=== PATIENT | female | born 1945 | race African-American/Black ===

== ENCOUNTER 2017-02-12 16:16 | Inpatient (IN) | payer MEDICARE, BC ==
--- NOTE | ~2017-02-12 | EGD ---
EGD REPORT [facility] [address] [address] NAME: CRISTINA STAPLETON : 41 STATUS : ADM IN PAT#: [id number] AGE: 71 ADM/REG DATE : 02/12/17 MR#: [id number] REPORT SERV DATE: 02/16/17 DICTATED BY: MAX FRENCH DATE: 02/16/17 REPORT STATUS : Draft [facility]ANSCRIBED BY: [facility] DATE: 02/16/17 Pulmonology Patient Name: Cristina Stapleton Procedure Date: 02/16/2017 12:16 PM Date of : 1945 Attending MD: ALXE FRENCH MD Procedure Date No Time: 02/16/2017 Procedure: EBUS Indications: Bilateral lung masses and left pleural effusion. Non-diagnostic thoracentesis Providers: ALEX FRENCH MD Referring MD: MEIR GASPAR Medicines: Lidocaine 2% 20 mL Complications: No immediate complications Procedure: Pre-Anesthesia Assessment: - ASA Grade Assessment: IV - A patient with severe systemic disease that is a constant threat to life. - After reviewing the risks and benefits, the patient was deemed in satisfactory condition to undergo the procedure. - A History and Physical has been performed. Patient meds and allergies have been reviewed. The risks and benefits of the procedure and the sedation options and risks were discussed with the patient. All questions were answered and informed consent was obtained. Patient identification and proposed procedure were verified prior to the procedure by the physician and the nurse in the pre-procedure area in the procedure room. Mental Status Examination: alert and oriented. Respiratory Examination: poor air movement. CV Examination: normal and RRR, no murmurs, no S3 or S4. ASA Grade Assessment: IV - A patient with severe systemic disease that is a constant threat to life. After reviewing the risks and benefits, the patient was deemed in satisfactory condition to undergo the procedure. The anesthesia plan was to use general anesthesia. Immediately prior to administration of medications, the patient was re-assessed for adequacy to receive sedatives. The heart rate, respiratory rate, oxygen saturations, blood pressure, adequacy of pulmonary ventilation, and response to care were monitored throughout the procedure. The physical status of the patient was re-assessed after the procedure. After obtaining informed consent, the Bronchoscope was introduced through the mouth, via laryngeal mask airway and advanced to the tracheobronchial tree. the BF EGD REPORT [address] [address] NAME: CRISTINA STAPLETON : 41 STATUS : ADM IN PAT#: [id number] AGE: 71 ADM/REG DATE : 02/12/17 MR#: [id number] REPORT SERV DATE: 02/16/17 DICTATED BY: MAX FRENCH DATE: 02/16/17 REPORT STATUS : Draft TRANSCRIBED BY: [employer] DATE: 02/16/17 [id number] was introduced through the and advanced to the. The procedure was accomplished without difficulty. The patient tolerated the procedure well. Findings: The laryngeal mask airway is in normal position. The vocal cords move normally with breathing. The subglottic space is normal. The trachea is of normal caliber. The luna is sharp. The tracheobronchial tree was examined to at least the first subsegmental level. Bronchial mucosa and anatomy are normal; there are no endobronchial lesions, and no secretions. EBUS TBNA of lymph node level 7 x 4 passes for cytology EBUS TBNA of lymph node level 4R x 8 passes for cytology EBUS TBNA of lymph node level 11R x 6 passes for cytology Bronchoalveolar lavage was performed in the right lower lobe of the lung and sent for routine cytology. 60 mL of fluid were instilled. 10 mL were returned. The return was blood-tinged. Impression: Rapid On-Site Evaluation (ZEN): Preliminary cytology is POSITIVE for malignancy (final results are pending). Recommendation: - Await test results. - Chest X-ray post-procedure. - Follow up with bronchoscopist tomorrow. Attending Participation: I personally performed the entire procedure. ALEX FRENCH MD 02/16/2017 12:47 PM This report has been signed electronically. Number of Addenda: 0 Note Initiated On: 02/16/2017 12:16 PM [address] [address]
--- NOTE | ~2017-02-12 | HP ---
History And Physical [address] [place]. [address] NAME: CRISTINA STAPLETON : 41 STATUS : ADM IN [facility]#: [id number] AGE: 71 ADM/REG DATE : 02/12/17 MR#: [id number] REPORT SERV DATE: 02/12/17 DICTATED BY: ATTILA PELAEZ DATE: 02/12/17 REPORT STATUS : Draft TRANSCRIBED BY: MODLester DATE: 02/12/17 DATE OF ADMISSION: 02/12/2017 CHIEF COMPLAINT: Worsening shortness of breath. HISTORY OF PRESENT ILLNESS: Ms. Stapleton is a 71-year-old female with history of hypertension and breast cancer, status post lumpectomy and chemotherapy who presents to the hospital with a complaint of shortness of breath. The patient states that she was well until about two or three days ago when she noticed that she started developing shortness of breath while exerting herself. She states that prior to her symptoms she was able to climb the stairs in her house without any difficulty. However, two days ago, she noticed that she was requiring more effort to exert herself. She said her symptoms progressively worsened over the next couple of days prompting her to present to the emergency room today. Upon presentation to the emergency room, preliminary workup included labs which were relatively normal, except sodium of 132 and a potassium of 3.0. A chest x-ray was also obtained which noted left pleural effusion involving the middle and lower lung lobes. The patient was subsequently admitted on the hospitalist service for further management. At the time of my evaluation, the patient was hemodynamically stable. She was not on any nasal cannula supplemental oxygen. She corroborated the above story; however, denied any fevers, any chills, any recent sick contacts. No chest pain or palpitations. No nausea or vomiting. No constipation. She has made report of worse significant shortness of breath with minimal exertion. She says other than that, she feels well and has no other complaints at this time. REVIEW OF SYSTEMS: A 12-point review of system was performed. All systems were negative except as noted in the HPI. PAST MEDICAL HISTORY: 1. Hypertension. 2. Breast cancer. PAST SURGICAL HISTORY: Hysterectomy. FAMILY HISTORY: Significant for: 1. Hypertension. 2. Coronary artery disease. 3. Renal disease. SOCIAL HISTORY: The patient reports smoking for over 20 years. States that a pack of cigarettes would last about three to four days. She states that she quit smoking 12 years ago at the time of her breast cancer diagnosis. Alcohol use, she reports using alcohol socially. She denies any illicit drug use. HOME MEDICATIONS: 1. Aspirin 81 mg p.o. daily. History And Physical [address] [place]. [address] NAME: CRISTINA STAPLETON : 41 STATUS : ADM IN PAT#: [id number] AGE: 71 ADM/REG DATE : 02/12/17 MR#: [id number] REPORT SERV DATE: 02/12/17 DICTATED BY: ATTILA PELAEZ DATE: 02/12/17 REPORT STATUS : Draft TRANSCRIBED BY: JOAN DATE: 02/12/17 2. Atorvastatin 10 mg p.o. at bedtime. 3. Chlorthalidone 25 mg p.o. daily. 4. Vitamin D 2000 units p.o. daily. 5. Synthroid 50 mcg p.o. daily. 6. Potassium chloride 20 mEq p.o. daily. ALLERGIES: THE PATIENT HAS NO KNOWN DRUG ALLERGIES. PHYSICAL EXAMINATION: VITAL SIGNS: On presentation, blood pressure 162/84 with a pulse of 90, respiration 19, O2 saturation 96% on room air. GENERAL: The patient is lying in bed, appears younger than stated age, in no acute distress, speaking in full sentences. HEENT: Normocephalic and atraumatic. Extraocular motors intact. Pupils round and reactive to light and accommodation. Anicteric sclerae. No conjunctival pallor. NECK: Trachea midline and symmetric. No JVD noted. No thyromegaly present. No lymphadenopathy palpated. CHEST: Nontender to palpation. No scars noted. CARDIOVASCULAR: Regular rate and rhythm. S1, S2. No murmurs, rubs, or gallops. LUNGS: Decreased breath sounds noted on the left middle and lower lung dasilva; however, the patient has normal respiratory effort. ABDOMEN: Positive bowel sounds. Nontender. Nondistended. No masses palpated. EXTREMITIES: No cyanosis, no clubbing, no edema. NEUROLOGIC: Alert and oriented x3. No focal deficits appreciated. LABORATORY DATA: WBC 5.3, hemoglobin 13.4, hematocrit 38.5 with an MCV of 88.3, platelets of 456. Sodium 132, potassium 3.0, chloride 97, bicarb 25, BUN 8, creatinine 0.88 with a GFR of 76, glucose 100. IMAGING: Portable chest x-ray, my interpretation, some dense opacities noted on the right lung bases. Pleural effusion noted on the entire left lung field, sparing only the lung apices. ASSESSMENT AND PLAN: 1. Left pleural effusion. Etiology unclear at this time. However, given the patient's history of breast cancer, recent weight loss, and labs noting hyponatremia, concerning for malignancy as etiology. Plan: We will obtain CT scan of the chest with contrast. We will consult IR for both a diagnostic and a therapeutic thoracentesis. 2. Hypertension, uncontrolled, currently only on chlorthalidone. We will start the patient on lisinopril 10 mg p.o. daily. 3. Hypokalemia. We will replete. 4. Hyponatremia, asymptomatic; however, concerning in the setting of pleural effusion. We will monitor for now. 5. Hypothyroidism. Currently on Synthroid. We will continue current management. 6. Code status. The patient will remain full code. 7. DVT prophylaxis with Lovenox. History And Physical [address] [address] NAME: CRISTINA STAPLETON : 41 STATUS : ADM IN [facility]#: [id number] AGE: 71 ADM/REG DATE : 02/12/17 MR#: [id number] REPORT SERV DATE: 02/12/17 DICTATED BY: ATTILA PELAEZ DATE: 02/12/17 REPORT STATUS : Draft TRANSCRIBED BY: JOAN DATE: 02/12/17 CONCHITA/JOAN Attila Pelaez MD / [id number] CC: Nehemias Perdomo M.D. Tricia Pratt M.D.
--- NOTE | ~2017-02-12 | DS ---
Discharge Summary [facility] [address] [place]. [address] NAME: CRISTINA SARAVIA : 41 STATUS : DIS IN PAT#: [id number] AGE: 71 ADM/REG DATE : 02/12/17 MR#: [id number] REPORT SERV DATE: 02/18/17 DICTATED BY: LORI PATEL DATE: 02/17/17 REPORT STATUS : Draft TRANSCRIBED BY: MODL DATE: 02/17/17 ADMISSION DATE: 02/12/2017 DISCHARGE DATE: 02/17/2017 HOSPITAL COURSE: This is a very pleasant 71-year-old female. She has a known history of endometrial cancer status post radiation, right breast cancer status post lumpectomy, chemotherapy, radiation therapy, hypertension, hyperlipidemia, hypothyroidism, known surgical history of total abdominal hysterectomy, right breast lumpectomy. She quit smoking in 2004 by half pack for 30 years prior to that, came in with large left pleural effusion and shortness of breath. 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 She was noted to have had a hormone agent for breast cancer with chemoradiation. She had a CT of the chest that showed large left pleural effusion, bilateral hilar masses, left thoracentesis 2 L of dark serosanguineous exudative effusion. The patient had cytology that was indeterminate as a result, needs a bronchoscopy EBUS during this hospital stay which Dr. James did on 02/16/2017 for which had EBUS lymph node level 7 x 4, 4R x 8, 11R x 6. ZEN was unfortunately positive for malignancy, final results pending. The patient is on 2 L of oxygen. We will do empiric Spiriva and PFT as an outpatient. Guaiac of the stool is negative. She also has CT of abdomen and pelvis. She had focal retroperitoneal adenopathy, suspected mesenteric adenopathy, destructive lesion suspect to left body L4 with adjacent sclerosis. Will follow with Dr. Marija Sutherland in less than one week. Oncology was okay with discharge after bronchoscopy yesterday. We will do walking oxygen challenge test, empiric Spiriva, PFT in four weeks. She had some mild SVT, I reduced her lisinopril and added metoprolol tartrate 12.5 mg p.o. b.i.d. DISCHARGE MEDICATIONS: 1. Aspirin 81 mg p.o. daily. 2. Lipitor 10 mg p.o. daily. 3. Chlorthalidone 25 mg p.o. daily. 4. Synthroid 50 mcg p.o. q.a.m. 5. Lisinopril 5 mg p.o. daily. 6. Metoprolol tartrate 12.5 mg p.o. b.i.d. 7. Prilosec p.r.n. 8. Spiriva 18 mcg capsule one inhale daily. 9. I gave her a ProAir HFA two puffs inhaled q.4 hours p.r.n. dyspnea. 10.The patient does not want any pain medications, I recommended Tylenol. CONSULT: Pulmonary as well as Oncology. Suspected possible endometrial cancer. DISCHARGE DIAGNOSES: Left thoracic masses, L2 lesion as well, hypertension, hypothyroidism, exudative effusion. All questions were answered. It took well over 30 minutes to do. DICTATED BY: Lori Patel DO Discharge Summary [address] [address] NAME: CRISTINA SARAVIA : 41 STATUS : DIS IN PAT#: [id number] AGE: 71 ADM/REG DATE : 02/12/17 MR#: [id number] REPORT SERV DATE: 02/18/17 DICTATED BY: LORI PATEL DATE: 02/17/17 REPORT STATUS : Draft TRANSCRIBED BY: JOAN DATE: 02/17/17 NADER/JOAN Lori Patel DO / [id number] CC: DO Tricia Gonzalez M.D.
--- NOTE | ~2017-02-12 | CN ---
Consultation Report [facility] [address] [place]. [address] NAME: CRISITNA STAPLETON : 41 STATUS : ADM IN PAT#: [id number] AGE: 71 ADM/REG DATE : 02/12/17 MR#: [id number] REPORT SERV DATE: 02/15/17 DICTATED BY: FOREIGN LE DATE: 02/15/17 REPORT STATUS : Draft TRANSCRIBED BY: MODLester DATE: 02/15/17 CONSULT NOTE DATE OF CONSULTATION: 02/15/2017 CHIEF COMPLAINT: Mild shortness of breath in a patient who presented with a large left pleural effusion. HISTORY OF PRESENT ILLNESS: Ms. Cristina Stapleton is a very pleasant 71-year-old female with a past medical history significant for breast cancer status post lumpectomy/chemotherapy, and radiation, endometrial cancer, and hypertension, who presents to [facility] Emergency Room with complaints of shortness of breath. It should be noted that Ms. Stapleton has not been hospitalized recently and she is usually in fairly good health given her significant comorbidities. 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 She does not usually require supplemental oxygen. She is on no nebulized medications. The patient quit smoking in 2004, prior to this time, she smoked approximately half a pack a day for 30 years. She denies symptomatology related to obstructive sleep apnea. She describes her exercise tolerance as being fairly poor of late. Ms. Stapleton was diagnosed with breast cancer in 2004. She underwent lobectomy and received chemo and radiation. She was likely on a hormonal agent as well. She did have a more recent diagnosis of endometrial cancer approximately two years ago, which was treated with radiation therapy. More recently, she has had some weight loss as well as worsening shortness of breath, which prompted her presentation to [facility] Emergency Room. Upon arrival, the patient was found to be hypertensive and afebrile. She had good oxygenation on room air. Initial white blood cell count was 5300. She did undergo a chest x-ray, which revealed a large left pleural effusion. She did undergo a CT of the chest, which demonstrated a large left-sided effusion as well as bilateral hilar masses. She underwent a left-sided thoracentesis, which produced 2 L of dark serosanguineous fluid. This was exudative in nature by both protein and LDH. Cultures have been sent with path pending, as the diagnostic yield on pleural fluid is sometimes suboptimal. Pulmonary has been consulted for consideration of possible further tissue biopsy. Currently, Ms. Stapleton states that her breathing has improved significantly after the thoracentesis. She is not requiring any supplemental oxygen. She is not coughing or producing any purulent sputum. She denies any wheezing in her chest. She denies recurrent pneumonias. She denies a formal diagnosis of COPD. She has had no recent hemoptysis or vocal cord changes. She denies any dysphagia. The patient does have known hypertension, is compliant with these medications. She currently denies any murmurs, angina, or palpitations. Consultation Report [address] [place]. [address] NAME: CRISTINA STAPLETON : 41 STATUS : ADM IN [facility]#: [id number] AGE: 71 ADM/REG DATE : 02/12/17 MR#: [id number] REPORT SERV DATE: 02/15/17 DICTATED BY: FOREIGN LE DATE: 02/15/17 REPORT STATUS : Draft TRANSCRIBED BY: JOAN DATE: 02/15/17 In regard to constitutional symptoms, she has had some weight loss. She currently denies any fever, chills, nausea, vomiting, chest pain, abdominal pain, or edema. PAST MEDICAL HISTORY: 1. Endometrial cancer status post radiation. 2. Right breast cancer status post lumpectomy/chemotherapy/radiation therapy. 3. Hypertension. 4. Dyslipidemia. 5. Hypothyroid on replacement therapy. PAST SURGICAL HISTORY: 1. Right breast lumpectomy. 2. Total abdominal hysterectomy. FAMILY HISTORY: The patient denies family history of lung disease. 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 Denies any known exposures to dust, silica, or asbestos. TOBACCO/ALCOHOL: Previously mentioned, Ms. Stapleton quit smoking in 2004, prior to this time, she smoked maybe half a pack a day for a period of 30 years. She denies any recent alcohol or illicit drug use. MEDICATIONS: Aspirin 81 mg, atorvastatin 10 mg, chlorthalidone 25 mg, and levothyroxine 50 mcg. ALLERGIES: THE PATIENT HAS NO KNOWN DRUG ALLERGIES. REVIEW OF SYSTEMS: Complete review of systems was performed with pertinent positives and negatives contained within the body of the HPI. PHYSICAL EXAMINATION: VITAL SIGNS: Blood pressure is 113/75, heart rate is 93, T-max 99.6, respiratory rate is 18, and SpO2 is 95% on room air. GENERAL: Ms. Cristina Stapleton is a thin appearing 71-year-old female, who is not currently exhibiting any signs of acute distress. SKIN: Skin with appropriate texture, turgor. No rashes, lesions, or ulcers. HEENT: Head, skull is normocephalic, atraumatic. Face is symmetric. Eyes, sclerae anicteric. Conjunctivae pink without exudates. Extraocular movements are intact. Ears, auricle and tragus without pain to palpation. Hearing is grossly intact. Nose, bilateral nasal patency. Throat, dentition noted in good repair. NECK: Neck is supple. Trachea midline. No cervical lymphadenopathy appreciated. THORAX/LUNGS: Diminished breath sounds in the left lower lung field. No wheezes Consultation Report [address] [address] NAME: CRISTINA STAPLETON : 41 STATUS : ADM IN [facility]#: [id number] AGE: 71 ADM/REG DATE : 02/12/17 MR#: [id number] REPORT SERV DATE: 02/15/17 DICTATED BY: FOREIGN LE DATE: 02/15/17 REPORT STATUS : Draft TRANSCRIBED BY: JOAN DATE: 02/15/17 appreciated. CARDIOVASCULAR: Regular rate and rhythm. No murmurs, rubs, or gallop. ABDOMEN: Soft, nondistended, nontender. PERIPHERAL VASCULAR: No edema. MUSCULOSKELETAL: Full AROM and PROM in all joints. NEUROLOGIC: 2 through 12 grossly intact. PSYCHIATRIC: The patient demonstrates good judgment and insight. ACCESSORY DATA: Reveals magnesium 1.8, CRP is 42, BNP is 39.5. Pleural fluid protein is 5.4, LDH is 613. CT of the chest reveals bilateral hilar masses as well as mediastinal lymphadenopathy. IMPRESSION: 1. Exudative left pleural effusion suspicious for malignancy. 2. Right hilar mass 5.3 x 3.1 cm. 3. Left perihilar mass greater than 10 cm. PLAN: 1. At this time, we will follow the pathology report closely. If this were to indeed be a malignant pleural effusion, we would offer the patient PleurX catheter, if she were to reaccumulate quickly. 2. In regard to the patient's hilar mass, if it is indeed necessary to pursue further tissue diagnosis, she has mediastinal lymph nodes as well as seemingly accessible lung masses, which would likely provide more diagnostic information. The aforementioned impression and plan has been discussed with Dr. James, who will follow further recommendations. We thank you for this consult and look forward to participating in the care of . Cristina Stapleton. GBS/MODL [employer] PA-C / [id number] CC: DO Tricia Gonzalez M.D.
[2017-02-12 14:06] LABS: BASOPHILS 0.6 %; BASOPHILS ABSOLUTE 0.03 10/3/uL (0.0-0.16); EOSINOPHILS 1.9 %; ER CBC TAT 0 Hrs 05 Mins; HEMATOCRIT 38.5 % (36.0-48.0); HEMOGLOBIN 13.4 g/dL (12.0-16.0); IMMATURE GRANULOCYTES 0.4 %; IMMATURE GRANULOCYTES ABSOLUTE 0.02 10/3/uL (0.0-0.11); LYMPHOCYTES 15.8 %; LYMPHOCYTES ABSOLUTE 0.84 10/3/uL (0.67-4.30); MEAN CORPUS HGB CONC 34.8 g/dL (32.0-36.0); MEAN CORPUSCULAR HEMOGLOB 30.7 pg (26.0-34.0); MEAN CORPUSCULAR VOLUME 88.3 fL (80-100); MEAN PLATELET VOLUME 8.3 fL (9.2-13.0); MONOCYTES 8.5 %; MONOCYTES ABSOLUTE 0.45 10/3/uL (0.21-1.20); NEUTROPHILS 72.8 %; NEUTROPHILS ABSOLUTE 3.87 10/3/uL (2.02-8.40); RBC DISTRIBUTION WIDTH 12.8 % (12.0-16.0); RED CELL COUNT 4.36 10/6/uL (4.0-5.6); WHITE BLOOD CELLS 5.3 10/3/uL (4.5-10.5)
[2017-02-12 14:07] LABS: MANUAL DIFF NO %; PLATELET COUNT 456 10/3/uL (150-400)
[2017-02-12 14:21] LABS: CALCIUM, SERUM 9.1 MG/DL (8.5-10.4); CHEST PAIN PROFILE TAT 0 Hrs 20 Mins; CHLORIDE, SERUM 97 MMOL/L (96-112); CO2 (CARBON DIOXIDE) 25 MMOL/L (24-34); CREATININE 0.88 MG/DL (0.55-1.02); GFR AFRICAN AMERICAN 76 ML/MIN (>=60); GFR NON AFRICAN AMERICAN 65 ML/MIN (>=60); GLUCOSE, SERUM 100 MG/DL (60-99); INTERNATIONAL NORMAL RATI 1.1 UNITS (-); PROTIME (NOT ORD) 14.1 SEC (12.0-14.5); TROPONIN I <0.02 NG/ML (<0.05)
[2017-02-12 14:22] LABS: BUN (BLOOD UREA NITROGEN) 8 MG/DL (6-23); SODIUM, SERUM 132 MMOL/L (135-148)
[~2017-02-12 16:16] MED LIST: ASAB PO; HYGROTON 25 MG25 MG PO; LIPITOR10 PO; MICRO-K10 MEQ PO; ROBITUSSIN MT; SYN.05 PO; VITAMIN D2000 UNIT PO
[2017-02-13 06:48] LABS: A/G RATIO 0.7 (0.7-1.9); ALKALINE PHOSPHATASE 98 U/L (45-117); BUN (BLOOD UREA NITROGEN) 9 MG/DL (6-23); CALCIUM, SERUM 8.8 MG/DL (8.5-10.4); CHLORIDE, SERUM 105 MMOL/L (96-112); CREATININE 0.82 MG/DL (0.55-1.02); GFR AFRICAN AMERICAN 82 ML/MIN (>=60); GFR NON AFRICAN AMERICAN 71 ML/MIN (>=60); GLOBULIN 4.4 G/DL (2.5-4.1); SGPT(ALT) 14 U/L (5-65); SODIUM, SERUM 135 MMOL/L (135-148); TOTAL BILIRUBIN 0.8 MG/DL (0-1.2); TOTAL PROTEIN 7.4 G/DL (6.0-8.5)
[2017-02-13 06:49] LABS: CO2 (CARBON DIOXIDE) 20 MMOL/L (24-34); GLUCOSE, SERUM 71 MG/DL (60-99); SGOT(AST) 29 U/L (5-40)
[2017-02-13 06:55] LABS: BASOPHILS 0.8 %; BASOPHILS ABSOLUTE 0.04 10/3/uL (0.0-0.16); EOSINOPHILS 2.3 %; EOSINOPHILS ABSOLUTE 0.11 10/3/uL (0.0-0.53); HEMATOCRIT 35.8 % (36.0-48.0); HEMOGLOBIN 12.1 g/dL (12.0-16.0); IMMATURE GRANULOCYTES 0.4 %; IMMATURE GRANULOCYTES ABSOLUTE 0.02 10/3/uL (0.0-0.11); LYMPHOCYTES 19.8 %; LYMPHOCYTES ABSOLUTE 0.96 10/3/uL (0.67-4.30); MEAN CORPUS HGB CONC 33.8 g/dL (32.0-36.0); MEAN CORPUSCULAR HEMOGLOB 30.2 pg (26.0-34.0); MEAN CORPUSCULAR VOLUME 89.3 fL (80-100); MEAN PLATELET VOLUME 8.2 fL (9.2-13.0); MONOCYTES 10.7 %; MONOCYTES ABSOLUTE 0.52 10/3/uL (0.21-1.20); NEUTROPHILS ABSOLUTE 3.19 10/3/uL (2.02-8.40); PLATELET COUNT 430 10/3/uL (150-400); RBC DISTRIBUTION WIDTH 12.9 % (12.0-16.0); RED CELL COUNT 4.01 10/6/uL (4.0-5.6); WHITE BLOOD CELLS 4.8 10/3/uL (4.5-10.5)
[2017-02-13 06:59] LABS: MANUAL DIFF NO %
[2017-02-13 10:50] LABS: BF TOTAL CELL CT (NOT ORD 2980 /MM3; BODY FLUID RBC (NOT ORD) 268325 /MM3
[2017-02-13 10:51] LABS: LDH BODY FLUID (NOT ORD) 613 U/L; PROTEIN BODY FLUID 5.4 G/DL
[2017-02-13 10:58] LABS: BD FL LYMPH (NOT ORD) 63 %; BD FL SOURCE (NOT ORD) PLEURAL; BF BASO (NOT OF) 0 %; BF LARGE MONONUCLEAR 30 %; BODY FLUID EOS (NOT ORD) 0 %; BODY FLUID SEG (NOT ORD) 7 %
[2017-02-14 06:34] LABS: BUN (BLOOD UREA NITROGEN) 12 MG/DL (6-23); CALCIUM, SERUM 8.8 MG/DL (8.5-10.4); CHLORIDE, SERUM 102 MMOL/L (96-112); CO2 (CARBON DIOXIDE) 23 MMOL/L (24-34); CREATININE 0.92 MG/DL (0.55-1.02); GFR AFRICAN AMERICAN 72 ML/MIN (>=60); GFR NON AFRICAN AMERICAN 62 ML/MIN (>=60); POTASSIUM, SERUM 3.8 MMOL/L (3.5-5.3); SODIUM, SERUM 135 MMOL/L (135-148)
[2017-02-14 06:39] LABS: GLUCOSE, SERUM 91 MG/DL (60-99)
[2017-02-14 06:40] LABS: BASOPHILS 0.5 %; BASOPHILS ABSOLUTE 0.03 10/3/uL (0.0-0.16); EOSINOPHILS 1.7 %; HEMATOCRIT 36.8 % (36.0-48.0); HEMOGLOBIN 12.5 g/dL (12.0-16.0); IMMATURE GRANULOCYTES 0.3 %; IMMATURE GRANULOCYTES ABSOLUTE 0.02 10/3/uL (0.0-0.11); LYMPHOCYTES 17.5 %; LYMPHOCYTES ABSOLUTE 1.03 10/3/uL (0.67-4.30); MEAN CORPUSCULAR HEMOGLOB 30.3 pg (26.0-34.0); MEAN CORPUSCULAR VOLUME 89.1 fL (80-100); MEAN PLATELET VOLUME 8.8 fL (9.2-13.0); MONOCYTES 11.4 %; MONOCYTES ABSOLUTE 0.67 10/3/uL (0.21-1.20); NEUTROPHILS 68.6 %; NEUTROPHILS ABSOLUTE 4.03 10/3/uL (2.02-8.40); PLATELET COUNT 483 10/3/uL (150-400); RBC DISTRIBUTION WIDTH 13.1 % (12.0-16.0); RED CELL COUNT 4.13 10/6/uL (4.0-5.6); WHITE BLOOD CELLS 5.9 10/3/uL (4.5-10.5)
[2017-02-14 06:41] LABS: MANUAL DIFF NO %
[2017-02-16 05:10] LABS: BUN (BLOOD UREA NITROGEN) 9 MG/DL (6-23); CALCIUM, SERUM 8.9 MG/DL (8.5-10.4); CHLORIDE, SERUM 97 MMOL/L (96-112); CO2 (CARBON DIOXIDE) 24 MMOL/L (24-34); CREATININE 0.94 MG/DL (0.55-1.02); GFR AFRICAN AMERICAN 70 ML/MIN (>=60); GFR NON AFRICAN AMERICAN 60 ML/MIN (>=60); GLUCOSE, SERUM 108 MG/DL (60-99); PHOSPHORUS, SERUM 3.1 MG/DL (2.5-4.5); POTASSIUM, SERUM 3.3 MMOL/L (3.5-5.3); SODIUM, SERUM 130 MMOL/L (135-148)
[2017-02-16 22:05] LABS: BUN (BLOOD UREA NITROGEN) 11 MG/DL (6-23); CALCIUM, SERUM 8.7 MG/DL (8.5-10.4); CHLORIDE, SERUM 98 MMOL/L (96-112); CO2 (CARBON DIOXIDE) 25 MMOL/L (24-34); CREATININE 1.11 MG/DL (0.55-1.02); GFR AFRICAN AMERICAN 57 ML/MIN (>=60); GFR NON AFRICAN AMERICAN 49 ML/MIN (>=60); GLUCOSE, SERUM 105 MG/DL (60-99); POTASSIUM, SERUM 3.7 MMOL/L (3.5-5.3); SODIUM, SERUM 132 MMOL/L (135-148)
[2017-02-17 06:16] LABS: BUN (BLOOD UREA NITROGEN) 10 MG/DL (6-23); CALCIUM, SERUM 8.7 MG/DL (8.5-10.4); CHLORIDE, SERUM 99 MMOL/L (96-112); CO2 (CARBON DIOXIDE) 25 MMOL/L (24-34); CREATININE 0.92 MG/DL (0.55-1.02); GFR AFRICAN AMERICAN 72 ML/MIN (>=60); GFR NON AFRICAN AMERICAN 62 ML/MIN (>=60); GLUCOSE, SERUM 104 MG/DL (60-99); PHOSPHORUS, SERUM 3.5 MG/DL (2.5-4.5); POTASSIUM, SERUM 3.7 MMOL/L (3.5-5.3); SODIUM, SERUM 132 MMOL/L (135-148)
[2017-02-17] MEDS ORDERED: PRIN5 PO (09:49)
[2017-02-17] MEDS ORDERED: LOP25 PO (09:49)
[2017-02-17] MEDS ORDERED: PRILO PO (09:50)
[2017-02-17] MEDS ORDERED: PROAIR HFA INH (09:50)
[2017-02-17] MEDS ORDERED: SPIRIVA INH (09:50)
[2017-05-09] MEDS ORDERED: XARELTO20 MG PO (10:02)
== END 2017-02-17 12:00 | disposition home or self-care (01) | DRG 167 ==
LOC: ER 16:16 → 4SO 17:42
PROVIDERS: Emergency Medicine; Hospitalist; Internal Medicine; Physician Assistant Medical
DX: C78.2 Secondary malignant neoplasm of pleura (principal); J90 Pleural effusion, not elsewhere classified; C79.51 Secondary malignant neoplasm of bone; C78.01 Secondary malignant neoplasm of right lung; E83.42 Hypomagnesemia; E87.1 Hypo-osmolality and hyponatremia; I10 Essential (primary) hypertension; E87.6 Hypokalemia; E03.9 Hypothyroidism, unspecified; Z79.82 Long term (current) use of aspirin; Z79.899 Other long term (current) drug therapy; Z85.3 Personal history of malignant neoplasm of breast; Z90.710 Acquired absence of both cervix and uterus; Z87.891 Personal history of nicotine dependence; Z92.21 Personal history of antineoplastic chemotherapy; Z92.3 Personal history of irradiation; Z85.42 Personal history of malignant neoplasm of other parts of uterus; Z90.11 Acquired absence of right breast and nipple; E78.5 Hyperlipidemia, unspecified
CPT/HCPCS: 32555; 71010; 71020; 71260; 74176; 80048; 80053; 82272; 83615; 83735; 83880; 84100; 84157; 84484; 85025; 85610; 85652; 85730; 86140; 87070; 87205; 88112; 88172; 88173; 88305; 88341; 88342; 88360; 89051; 93005; 99285; A9270-GY; C1725; C9113; J2370; J2405; J3475; Q9967